=== PATIENT | male | born 1935 | race Caucasian/White ===

== ENCOUNTER 2017-01-30 11:31 | Emergency (ER) | payer MEDICARE, OTHER ==
[~2017-01-30] VITALS: Ht 177.8 cm; Wt 86.2 kg
[~2017-01-30 11:31] MED LIST: CEFD1CAP8 PO; DOCU100C PO; ECOT81TA5 PO; GABA600T PO; GLYB5TA PO; LISI25TA PO; MAGN400T5 PO; METF1000 PO; MULTCAP PO; RANI15TA PO; SIMV40TA2 PO; TERB1CRE8 TOP; VITA1CAP2 PO
[2017-01-30 11:33] VITALS: BP 136/80
== END 2017-01-30 12:56 | disposition home or self-care (01) ==
LOC: M ED 12:37
DX: T83.091A Other mechanical complication of indwelling urethral catheter, initial encounter (principal)

== ENCOUNTER 2017-02-19 21:35 | Emergency (ER) | payer MEDICARE, OTHER ==
[~2017-02-19] VITALS: Ht 180.3 cm; Wt 83.9 kg
[2017-02-19 21:36] VITALS: BP 121/75
== END 2017-02-19 22:44 | disposition home or self-care (01) ==
LOC: M ED 22:44
DX: T83.028A Displacement of other urinary catheter, initial encounter (principal)

== ENCOUNTER 2017-10-25 13:23 | Emergency (ER) | payer MEDICARE, OTHER ==
[~2017-10-25] VITALS: Ht 180.3 cm; Wt 77.3 kg
[~2017-10-25 13:23] MED LIST changes: -DOCU100C PO; +DOCU100C16 PO; -METF1000 PO; +METF10004 PO; +TERB1CRE12 TOP; -TERB1CRE8 TOP
[2017-10-25] MEDS ORDERED: VITA100067 PO (13:41)
[2017-10-25] MEDS ORDERED: GLYB25TA PO (13:41)
[2017-10-25 17:24] LABS: BASO # 0.1 10^3/uL (0.0-0.2); EOS # 0.6 10^3/uL (0.0-0.50); EOS % 8.5 % (0.0-3.0); IMMATURE GRANULOCYTE % 0.4 % (0-0); LYMPH # 1.6 10^3/uL (1.5-4.5); LYMPH % 23.5 % (24.0-44.0); MEAN CORPUSCULAR HEMOGLOBIN 30.3 pg (27.0-33.0); MEAN CORPUSCULAR HGB CONC 33.1 g/dl (32.0-36.5); MEAN CORPUSCULAR VOLUME 91.5 fl (80.0-96.0); MONO # 0.6 10^3/uL (0.0-0.8); MONO % 8.6 % (0.0-5.0); PLATELET COUNT, AUTOMATED 235 10^3/uL (150-450); RED CELL DISTRIBUTION WIDTH 13.3 % (11.5-14.5); WHITE BLOOD COUNT 6.9 10^3/uL (4.0-10.0)
[2017-10-25] MEDS ORDERED: CLINDAMYCIN 600 MG in APPROPRIATE DILUENT 1 EA IV ONE (17:45)
[2017-10-25 17:51] LABS: CALCIUM LEVEL 9.4 MG/DL (8.8-10.2); CREATININE FOR GFR 1.39 MG/DL (0.70-1.30); GLOMERULAR FILTRATION RATE 52.1 (>35); POTASSIUM SERUM 3.8 MEQ/L (3.5-5.1)
--- NOTE | 2017-10-25 17:51 | REP ---
Left ring finger series: Four views. History: Left fourth finger infection, question osteomyelitis. No comparison study. Findings: There is moderate soft tissue swelling about the middle and distal phalanges of the ring finger, particularly dorsally. No soft tissue gas or opaque foreign body is seen. No periosteal reaction or bony erosive changes seen. 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 Impression: No bony destructive lesion or erosive change. Soft tissue swelling. No soft tissue gas or opaque foreign body seen. Signed by Franck Cutler MD 10/25/2017 07:53 P
[2017-10-25 17:54] LABS: ERYTHROCYTE SEDIMENTATION RATE 23 mm/hr (0-20)
[2017-10-25] MEDS ORDERED: CLEO300C2 PO (18:26)
[2017-10-25 18:44] VITALS: BP 135/74
== END 2017-10-25 18:45 | disposition home or self-care (01) ==
LOC: EEVIPCON 13:23 → M ED 13:23
DX: L03.012 Cellulitis of left finger (principal); E11.9 Type 2 diabetes mellitus without complications; Z79.899 Other long term (current) drug therapy; Z79.82 Long term (current) use of aspirin; Z79.84 Long term (current) use of oral hypoglycemic drugs

== ENCOUNTER 2018-06-02 15:02 | Emergency (ER) | payer MEDICARE, OTHER | END 2018-06-02 18:00 | disposition home or self-care (01) | LOC: M ED 15:02 | DX: T83.098A Other mechanical complication of other urinary catheter, initial encounter (principal); Y92.9 Unspecified place or not applicable; Y93.9 Activity, unspecified; I10 Essential (primary) hypertension; G95.9 Disease of spinal cord, unspecified; Z87.891 Personal history of nicotine dependence; Z79.82 Long term (current) use of aspirin; Z79.899 Other long term (current) drug therapy | CPT/HCPCS: 51700 ==

== ENCOUNTER 2018-08-30 13:22 | Emergency (ER) | payer MEDICARE, OTHER ==
[2018-08-30 14:29] LABS: BASO # 0.1 10^3/uL (0.0-0.2); BASO % 0.5 % (0.0-1.0); EOS # 0.1 10^3/uL (0.0-0.50); EOS % 0.7 % (0.0-3.0); HEMATOCRIT 39.4 % (42.0-52.0); HEMOGLOBIN 13.1 g/dl (13.5-17.5); IMMATURE GRANULOCYTE % 0.7 % (0-3.0); MEAN CORPUSCULAR HEMOGLOBIN 29.8 pg (27.0-33.0); MEAN CORPUSCULAR HGB CONC 33.2 g/dl (32.0-36.5); MEAN CORPUSCULAR VOLUME 89.5 fl (80.0-96.0); MONO # 0.8 10^3/uL (0.0-0.8); MONO % 8.4 % (0.0-5.0); NEUTROPHILS # 7.4 10^3/uL (1.8-7.7); NEUTROPHILS % 78.7 % (36.0-66.0); PLATELET COUNT, AUTOMATED 332 10^3/uL (150-450); RED CELL DISTRIBUTION WIDTH 13.1 % (11.5-14.5); WHITE BLOOD COUNT 9.4 10^3/uL (4.0-10.0)
[2018-08-30 14:37] LABS: KETONE, URINE AUTO RFX TRACE mg/dL (NEGATIVE); MUCUS, URINE RFX LARGE (NEGATIVE); NITRITE, URINE AUTO RFX NEGATIVE (NEGATIVE); RBC, URINE AUTO RFX 87 /HPF (0-3); SPECIFIC GRAVITY UR AUTO RFX 1.023 (1.002-1.035); SQUAM EPITHELIAL CELL UR AURFX 0 /HPF (0-6)
[2018-08-30 14:43] LABS: LEUKOCYTE ESTERASE UR AUTO RFX 2+ (NEGATIVE); WBC, URINE AUTO RFX TNTC /HPF (0-3)
[2018-08-30 15:04] LABS: BLOOD UREA NITROGEN 18 MG/DL (7-18); CREATININE FOR GFR 1.28 MG/DL (0.70-1.30); GLOMERULAR FILTRATION RATE 57.3 (>35); GLUCOSE, FASTING 112 MG/DL (70-100); SODIUM LEVEL 139 MEQ/L (136-145)
[2018-08-30 15:05] LABS: ANION GAP 11 MEQ/L (8-16); CALCIUM LEVEL 8.9 MG/DL (8.8-10.2); CARBON DIOXIDE LEVEL 24 MEQ/L (21-32); CHLORIDE LEVEL 104 MEQ/L (98-107); POTASSIUM SERUM 4.5 MEQ/L (3.5-5.1)
[2018-08-30] MEDS: NS 1,000 ML IV (15:38)
[2018-08-30] MEDS: cefTRIAXone SOD 1 GM in D5W MINI-BAG PLUS 50 ML IV (15:38)
== END 2018-08-30 16:55 | disposition home or self-care (01) ==
LOC: M ED 13:22
DX: N30.00 Acute cystitis without hematuria (principal); E11.9 Type 2 diabetes mellitus without complications; N39.498 Other specified urinary incontinence; I10 Essential (primary) hypertension; E78.00 Pure hypercholesterolemia, unspecified; Z79.899 Other long term (current) drug therapy; Z79.4 Long term (current) use of insulin; Z79.82 Long term (current) use of aspirin; Z93.6 Other artificial openings of urinary tract status; Z87.828 Personal history of other (healed) physical injury and trauma
CPT/HCPCS: J0696

== ENCOUNTER 2018-11-17 14:20 | Emergency (ER) | payer MEDICARE, OTHER ==
[~2018-11-17] VITALS: Ht 177.8 cm; Wt 88.6 kg
[~2018-11-17 14:20] MED LIST changes: +CEPH500C PO; +CLEO300C2 PO; -GABA600T PO; +GABA600T4 PO; +GLYB25TA PO; +HYDR1OI; +LANTINJ4 SC; +NYST10OI; +VITA100067 PO
[2018-11-17] MEDS ORDERED: LISI-542 (14:27)
[2018-11-17] MEDS ORDERED: ACETAMINOPHEN TAB 650MG DOSE (2X325MG) PO ONE (15:15)
--- NOTE | 2018-11-17 15:46 | REP ---
Pain after trauma. COMPARISON EXAM: None. The bones are demineralized. Degenerative changes are seen throughout the wrist. There is no evidence of an acute fracture, dislocation, or subluxation. IMPRESSION: Chronic changes. Electronically Signed by Biju Newby DO 11/17/2018 03:57 P
--- NOTE | 2018-11-17 15:48 | REP ---
RIGHT HAND, TWO VIEWS: HISTORY: Pain. There is no acute fracture or dislocation. There is narrowing of the lateral carpal and first carpometacarpal joint spaces. An osteophyte is present at the first metacarpophalangeal joint space and at the interphalangeal joint space of the first digit. IMPRESSION: There is no acute fracture or dislocation. Electronically Signed by Eliecer Gonzáles MD 11/17/2018 03:50 P
[2018-11-17 16:14] VITALS: BP 108/56
== END 2018-11-17 16:31 | disposition home or self-care (01) ==
LOC: M ED 14:20
DX: M18.11 Unilateral primary osteoarthritis of first carpometacarpal joint, right hand (principal); M25.741 Osteophyte, right hand; E11.9 Type 2 diabetes mellitus without complications; I10 Essential (primary) hypertension; E78.5 Hyperlipidemia, unspecified; Z79.82 Long term (current) use of aspirin; Z79.4 Long term (current) use of insulin; Z79.899 Other long term (current) drug therapy

== ENCOUNTER 2019-03-02 16:59 | Emergency (ER) | payer MEDICARE, OTHER ==
[~2019-03-02] VITALS: Ht 177.8 cm; Wt 80.9 kg
[~2019-03-02 16:59] MED LIST changes: +GLYB-147 PO; -GLYB5TA PO; +LISI-542; +LISI2.5T49 PO; -LISI25TA PO; +VITA-183 PO; -VITA1CAP2 PO
[2019-03-02 17:07] VITALS: BP 135/82
== END 2019-03-02 18:17 | disposition home or self-care (01) ==
LOC: M ED 16:59
DX: T83.198A Other mechanical complication of other urinary devices and implants, initial encounter (principal); X58.XXXA Exposure to other specified factors, initial encounter; Y92.89 Other specified places as the place of occurrence of the external cause; E11.9 Type 2 diabetes mellitus without complications; I10 Essential (primary) hypertension; G89.29 Other chronic pain; Z79.899 Other long term (current) drug therapy; Z79.82 Long term (current) use of aspirin; Z79.4 Long term (current) use of insulin

== ENCOUNTER 2019-03-05 09:07 | Emergency (ER) | payer MEDICARE, OTHER ==
[~2019-03-05] VITALS: Ht 177.8 cm; Wt 178.0 kg
[2019-03-05] MEDS ORDERED: FUROSEMIDE 20 MG TAB PO ONE (13:00)
[2019-03-05 14:40] VITALS: BP 132/61
--- NOTE | 2019-03-06 10:08 | ER ---
DATE OF CONSULTATION: 03/05/2019 Eliecer is an 83-year-old gentleman who was seen in the emergency room this morning after his suprapubic catheter had fallen out. The nurses and the physician investigative assistant (PA) could not get the catheter back, for which reason the urological consultation was called. I saw the patient. He was in moderate distress. He has a history of spinal cord surgeries and neurogenic bladder for which he has been managed with suprapubic catheter for the last one year. His catheter was changed on the 02 March in the clinic. It came out accidentally and then it was replaced by the emergency room, but today when the emergency room doctors were trying to put it back, they could not get it back inside. Apparently, the suprapubic (SP) tract has been closing down. I made an attempt to put the SP tube back, but it failed because the tract was too tight so we did a bedside procedure. A 0-38 F guidewire was passed through the small opening in the suprapubic region and the guidewire Was manipulated in the bladder and curled into the bladder. After the adequate length of guidewire was curled in the bladder The SP tract was dilated to 24 Turkmen over the guidewire using plastic ureteral dilators and an 18 Turkmen catheter was slipped in over the guidewire with no difficulty. Around 800 mL of the blood tinged urine was drained. The patient was asked to stay in the emergency room for the next couple of hours and 40 of Lasix was given and he would drink a lot of water. This patient will followup with us in the clinic in about 4 weeks for change of his suprapubic catheter (SPC). SANDOVAL
== END 2019-03-05 15:25 | disposition home or self-care (01) ==
LOC: M ED 09:07
DX: T83.198A Other mechanical complication of other urinary devices and implants, initial encounter (principal); Y92.9 Unspecified place or not applicable; Y93.9 Activity, unspecified; N31.9 Neuromuscular dysfunction of bladder, unspecified; Z79.82 Long term (current) use of aspirin; Z79.4 Long term (current) use of insulin; Z79.899 Other long term (current) drug therapy

== ENCOUNTER 2019-10-27 11:23 | Observation (INO) | payer MEDICARE, OTHER ==
[~2019-10-27] VITALS: Ht 180.3 cm; Wt 85.6 kg
[~2019-10-27 11:23] MED LIST changes: -NYST10OI; +NYST10OI TOP; -SIMV40TA2 PO; +SIMV40TA20 PO
[2019-10-27] MEDS ORDERED: METF500T13 PO (11:45)
[2019-10-27] MEDS ORDERED: NS 2,250 ML in IV 1 EA IV ONE (11:45)
[2019-10-27] MEDS ORDERED: LISI-1046 PO (11:45)
[2019-10-27] MEDS ORDERED: FAMO20TA PO (11:45)
[2019-10-27 11:59] LABS: BASO % 0.2 % (0.0-1.0); EOS % 0.1 % (0.0-3.0); HEMATOCRIT 41.6 % (42.0-52.0); HEMOGLOBIN 13.9 g/dl (13.5-17.5); LYMPH % 1.8 % (24.0-44.0); MEAN CORPUSCULAR HEMOGLOBIN 30.2 pg (27.0-33.0); MEAN CORPUSCULAR HGB CONC 33.4 g/dl (32.0-36.5); MEAN CORPUSCULAR VOLUME 90.2 fl (80.0-96.0); MONO # 0.6 10^3/uL (0.0-0.8); NEUTROPHILS # 11.6 10^3/uL (1.5-8.5); NEUTROPHILS % 92.4 % (36.0-66.0); PLATELET COUNT, AUTOMATED 150 10^3/uL (150-450); RED BLOOD COUNT 4.61 10^6/uL (4.30-6.10); WHITE BLOOD COUNT 12.5 10^3/uL (4.0-10.0)
[2019-10-27] MEDS ORDERED: ACETAMINOPHEN 325 MG TAB PO ONE (12:00)
[2019-10-27] MEDS ORDERED: cefTRIAXone SOD 1 GM in D5W MINI-BAG PLUS 50 ML IV ONE (12:00)
[2019-10-27 12:17] LABS: LYMPH # 0.2 10^3/uL (1.5-5.0)
[2019-10-27 12:32] LABS: APPEARANCE, URINE HAZY (CLEAR); BACTERIA, URINE AUTO 1+ (NEGATIVE); BILIRUBIN, URINE AUTO NEGATIVE (NEGATIVE); BLOOD, URINE BLOOD 3+ (NEGATIVE); COLOR, URINE YELLOW (YELLOW); GLUCOSE, URINE (UA) AUTO NEGATIVE (NEGATIVE); KETONE, URINE AUTO TRACE mg/dL (NEGATIVE); LEUKOCYTE ESTERASE, URINE AUTO 1+ (NEGATIVE); MUCUS, URINE SMALL (NEGATIVE); NITRITE, URINE AUTO NEGATIVE (NEGATIVE); PROTEIN, URINE AUTO 2+ mg/dL (NEGATIVE); RBC, URINE AUTO 73 /HPF (0-3); SPECIFIC GRAVITY URINE AUTO 1.013 (1.002-1.035); SQUAMOUS EPITHELIAL CELL UR AU 0 /HPF (0-6); UROBILINOGEN, URINE AUTO 0.2 mg/dL (0.0-2.0); WBC, URINE AUTO 16 /HPF (0-3)
[2019-10-27 12:34] LABS: ALBUMIN 3.6 GM/DL (3.2-5.2); BILIRUBIN,DIRECT 0.4 MG/DL (0.0-0.2); BILIRUBIN,TOTAL 1.5 MG/DL (0.2-1.0); CALCIUM LEVEL 9.2 MG/DL (8.8-10.2); CREATININE FOR GFR 1.43 MG/DL (0.70-1.30); GLOMERULAR FILTRATION RATE 50.2 (>35); POTASSIUM SERUM 4.2 MEQ/L (3.5-5.1); TOTAL PROTEIN 6.9 GM/DL (6.4-8.2)
--- NOTE | 2019-10-27 13:08 | REP ---
Portable chest x-ray: Single view. History: Fever. Findings: The lungs are symmetrically aerated and clear. Pleural angles are sharp. Heart size is normal. There is a mild dextroconvex curve in the thoracic spine. The aorta is tortuous. Impression: No active disease. Electronically Signed by Franck Cutler MD 10/27/2019 01:00 P
[2019-10-27] MEDS ORDERED: LISI-542 PO (13:32)
[2019-10-27] MEDS ORDERED: ZOCO80TA PO (13:32)
[2019-10-27] MEDS ORDERED: GLUC4GMTAB PO (13:32)
[2019-10-27] MEDS ORDERED: MICO2CRE42 TOP (13:34)
[2019-10-27] MEDS ORDERED: VANCOMYCIN HCL 1,000 MG, VIAL MATE ADAPTER 1 EACH in D5W 250 ML IV ONE (15:30)
[2019-10-27] MEDS ORDERED: ACETAMINOPHEN TAB 650MG DOSE (2X325MG) PO PRN (17:30)
[2019-10-27] MEDS ORDERED: SODIUM CHLORIDE 0.9% 1000ML IV SCH (17:30)
[2019-10-27] MEDS ORDERED: NYSTATIN OINTMENT 15 GM TOP PRN (17:45)
[2019-10-27] MEDS ORDERED: GLUCAGON FOR INJ 1 MG VIAL (J1610) SC PRN (17:45)
[2019-10-27] MEDS ORDERED: GLUCOSE 4 GM CHEW TABLET PO PRN (17:45)
[2019-10-27] MEDS ORDERED: DEXTROSE 50% 50 ML SYRINGE IV PRN (17:45)
[2019-10-27] MEDS ORDERED: MICONAZOLE TOPICAL 2% CREAM 15GM TOP PRN (17:45)
--- NOTE | 2019-10-27 18:02 | PHACANCOPD ---
PHARMACY VANCOMYCIN DOSING Pt Demographics Demographics Patient Age:84 , Weight:75.000 , Gender: male Adjusted Body Weight Date: 10/27/19, Adjusted Body Weight: Kg Events Past 24 Hours Events Past 24 Hours: NO: Dialysis, Diuretic Therapy, Change in CrCl, Fever, Elevation in WBC, Pending Diagnostics, Pending Procedures, Other Vancomycin Vancomycin indication: UTI WITH HISTORY OF MRSA UTI Vancomycin Target Ranges: 15-20 mcg/ml Vancomycin Load Y/N: Yes Load Dose Date Time Vancomycin Load Dose: 1.5g Date: 10/27/19 Time:18:00 Vancomycin Dose Date: 10/27/19. Current Vancomycin Dose: [1g iv q24h] Intermittent Dosing?: No Labs Labs Item Value Date Time Creatinine 1.43 MG/DL H 10/27/19 1141 Item Value Date Time White Blood Count 12.5 10^3/uL H 10/27/19 1141 Creatinine 1.43 MG/DL H 10/27/19 1141 Micro Microbiology 10/27/19 Urine Culture, Received Pending 10/27/19 Blood Culture, Received Pending 10/27/19 Blood Culture, Received Pending Creatinine Clearance Date:10/27/19. Creatinine Clearance: [41mil/min]. Pending Labs vanco trough 10/29/19 @16 Assessment and Plan Maintaining Current Dose?: Yes Reason for dose change: No Dose Change Pharmacist Note Pharmacist Note Date: 10/27/19. Pharmacist note: PT is an 84 year old male being treated for uti with history of MRSA UTI goal trough 15-20mcg/ml. He has not been treated with vancomycin here at [facility] in the past. To achieve goal a 1.5g loading dose was started 10/27/19 @17:00. Maintenance therapy will consist of 1g IV every 24 hours. A trough is scheduled for 10/29/19 @16:00 prior to the third dose. We will continue to monitor and adjust the dose as needed. ROSANNA [facility] Oct 27, 2019 18:02
[2019-10-27] MEDS: HumaLOG INSULIN (NovoLOG) PER UNIT SC SCH (18:16)
--- NOTE | 2019-10-27 18:18 | HPEPDOC ---
General Date of Admission 10/27/2019 Date of Service: Oct 27, 2019 Attending Physician: SHELLEY PEÑA MD Chief Complaint The patient is a 84-year-old male admitted with a reason for visit of Urosepsis/ Unable To Care For Himself. Source: Patient, Family Exam Limitations: No limitations Timing/Duration: 24 hours Associated Symptoms: Other (abdominal pain) History of Present Illness 84 yo man with a history of spinal cord injury with a chronic suprapubic catheter c/b recurrent UTIs of which the last in our EMR was a MRSA UTI, diabetes, diverticulosis, hypertension, and diabetic neuropathy who presented from home with acute hematuria and transient abdominal pain in the setting of a recent suprapubic catheter change yesterday that he reportedly may have pulled out and had transient blockage with acute abdominal pain that resolved after his home nurse arrived today and exchanged out the catheter with immediate flow of blood urine with clots that later cleared and immediate relief of the abdominal pain. He however developed a fever and chills and his nurse after changing his catheter decided that he should be brought in for evaluation of the fever, chills, and recent abdominal pain and lethargy. Int he ED, he arrived with vitals 123/66, RR 18, breathing comfortably on room air with 100% saturation, HR 96 and RR 18 with his urinary bag draining already slightly cloudy yellow urine without clots. His BP subsequently dropped to 90/55 and he had a low grade temp to 100F and tachycardia and he was given 2L NS and started on empiric vanc and ceftriaxone. His work up was notable for a +UA with 1+ louisa, 1+ leuk, 16 WBC, 73 RBCs, 3+ blood and 2+ protein. WBC was 12.5, H/H 13.9/41.6, platelets 150, Cr 1.43, lactate 1.9, total bili 1.4, and had a CT A/P and RUQ US that were pending. He also had an unrevealing CXR. He is now being admitted to medicine for urosepsis. Home Medications Scheduled Aspirin (Ecotrin) 81 Mg Tab, 81 MG PO DAILY, (Reported) Famotidine (Famotidine) 20 Mg Tablet, 20 MG PO DAILY, (Reported) Gabapentin (Gabapentin) 600 Mg Tab, 600 MG PO BID, (Reported) Insulin Glargine,Hum.rec.anlog (Lantus Solostar) 100 Unit/Ml Inj, 16 UNITS SC QHS, (Reported) Lisinopril (Lisinopril) 5 Mg Tablet, 2.5 MG PO DAILY, (Reported) Metformin HCl (Metformin HCl) 500 Mg Tablet, 500 MG PO BID, (Reported) Simvastatin (Zocor) 80 Mg Tablet, 40 MG PO QHS, (Reported) Scheduled PRN Dextrose (Glucose) 4 Gm Tab.chew, 4 GM PO ASDIRECTED PRN for LOW BLOOD SUGAR, (Reported) Miconazole Nitrate (Miconazole Nitrate) 30 Gm Cream..g., 1 APLCT TOP BID PRN for FUNGAL INFECTION, (Reported) APPLY TO SUPRAPUBIC CATHETER AREA Nystatin (Nystatin) 100,000 Unit/Gm Oin, 1 APLCT TOP BID PRN for FUNGAL INFECTION, (Reported) APPLY TO SUPRAPUBIC CATHETER AREA Allergies Coded Allergies: No Known Allergies (Unverified , 10/21/14) Past Medical History Medical History DM HTN Diverticulosis 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 A-FIB/CHADSVASC A-FIB History Current/History of A-Fib/PAF?: No Current PO Anticoag Therapy: No Age/Risk Factor Scoring CHADSVASC: CHADSVASC Response (Comments) Value Age Risk Factor Age >/= 75 years old 2 Gender Risk Factor Male 0 Hx of CHF No 0 Hx of HTN Yes 1 Hx of Stroke/TIA/or VTE No 0 Hx of Diabetes Yes 1 Hx of Vascular Disease No 0 Total 4 Treatment Treatment ordered: NONE Reason Anticoagulant not given: Not indicated/[id number] Review of Systems Constitutional: Reports: Chills, Fever; Denies: Malaise, Night Sweats, Weakness, Fatigue, Weight Loss Eyes: Denies: Pain, Vision change ENT: Denies: Head Aches, Ear Pain, Dysphagia Skin: Denies: Rash, Lesions, Breakdown Pulmonary: Denies: Dyspnea, Cough Cardiovascular: Denies: Chest Pain, Palpitations, Orthopnea, Paroxysmal Noc. Dyspnea, Lt Headedness Gastrointestinal: Reports: Abdominal Pain; Denies: Nausea, Vomiting, Diarrhea, Constipation, Melena, Hematochezia Genitourinary: Reports: Hematuria, Retention; Denies: Dysuria, Frequency, Incontinence Hematologic: Denies: Bruising, Bleeding Excessively Endocrine: Denies: Polydipsia, Polyphagia, Polyuria, Heat Intolerance, Cold Intolerance, Other Endocrine Sx Musculoskeletal: Reports: Back Pain (mild, chronic, no new worsening); Denies: Neck Pain, Shoulder Pain, Arm Pain, Hand Pain, Leg Pain, Foot Pain, Joint Pain, Muscle Pain, Spasms, Other Symptoms Neurological: Reports: Weakness, Numbness; Denies: Change in speech, Confusion, Seizures Psych: Reports: Mood Normal; Denies: Depression, Memory Issues Physical Examination General Exam: Positive: Alert, No Acute Distress Eye Exam: Positive: PERRLA, Conjunctiva & lids normal, EOMI; Negative: Sclera icteric ENT Exam: Positive: Atraumatic, Mucous membr. moist/pink, Pharynx Normal Neck Exam: Positive: Supple; Negative: JVD, thyromegaly Chest Exam: Positive: Clear to auscultation, Normal air movement Heart Exam: Positive: Rate Normal, Regular Rhythm, Normal S1, Normal S2; Negative: Murmurs, Rubs Telemetry: Positive: No significant arrhythmia Abdomen Exam: Positive: Normal bowel sounds, Soft; Negative: Tenderness, Hepatospenomegaly Extremity Exam: Positive: Normal pulses; Negative: Clubbing, Cyanosis, Edema Skin Exam: Positive: Nl turgor and temperature; Negative: Breakdown, Lesion Neuro Exam: Positive: Normal Speech, Cranial Nerves 3-12 NL Psych Exam: Positive: Mental status NL, Mood NL, Oriented x 3 Vital Signs Vital Signs Date Time Temp Pulse Resp B/P (MAP) Pulse Ox O2 Delivery O2 Flow Rate FiO2 10/27/19 16:30 92 111/72 (85) 97 10/27/19 13:30 98.9 10/27/19 12:45 Room Air 10/27/19 11:30 18 Laboratory Data Labs 24H Laboratory Tests 2 10/27/19 11:41: Immature Granulocyte % (Auto) 0.5, Neutrophils (%) (Auto) 92.4H, Lymphocytes (%) (Auto) 1.8L, Monocytes (%) (Auto) 5.0, Eosinophils (%) (Auto) 0.1, Basophils (%) (Auto) 0.2, Neutrophils # (Auto) 11.6H, Lymphocytes # (Auto) 0.2L, Monocytes # (Auto) 0.6, Eosinophils # (Auto) 0.0, Basophils # (Auto) 0.0, Nucleated Red Blood Cells % (auto) 0.0, Anion Gap 11, Glomerular Filtration Rate 50.2, Lactic Acid Level 1.9, Calcium Level 9.2, Total Bilirubin 1.5H, Direct Bilirubin 0.4H, Aspartate Amino Transf (AST/SGOT) 11, Alanine Aminotransferase (ALT/SGPT) 15, Alkaline Phosphatase 58, Total Protein 6.9, Albumin 3.6, Albumin/Globulin Ratio 1.09 10/27/19 12:19: Urine Color YELLOW, Urine Appearance HAZY, Urine pH 5.0, Urine Specific [place] 1.013, Urine Protein 2+H, Urine Glucose (Auto)(UA) NEGATIVE, Urine Ketones (Auto) TRACEH, Urine Blood 3+H, Urine Nitrite NEGATIVE, Urine Bilirubin NEGATIVE, Urine Urobilinogen 0.2, Urine Leukocyte Esterase (Auto) 1+H, Urine WBC (Auto) 16H, Urine RBC (Auto) 73H, Urine Hyaline Casts (Auto) 1, Urine Bacteria (Auto) 1+H, Urine Squamous Epithelial Cells 0, Urine Mucus (Auto) SMALL, Urine Sperm (Auto) CBC/BMP Laboratory Tests 10/27/19 11:41 Microbiology Microbiology 10/27/19 Urine Culture, Received Pending 10/27/19 Blood Culture, Received Pending 10/27/19 Blood Culture, Received Pending Assessment/Plan 84 yo man with a history of spinal cord injury with a chronic suprapubic catheter c/b recurrent UTIs, diabetes, diverticulosis, hypertension, and diabetic neuropathy who presented from home with acute hematuria and transient abdominal pain after manipulation of his suprapubic catheter with transient occlusion that has now been resolved with urosepsis. Plan Urosepsis: Hematuria with transient lola hematuria after catheter exchange and manipulation, then development of fever, lethargy, tachycardia and found to have leukocytosis and +UA. -Continue vanc/ceftriaxone given the prior micro history -urine culture -blood cultures -f/u CT A/P Transient abdominal pain: Likely 2/2 catheter obstruction that resolved with replacement of catheter. Unlikely to be biliary in origin but will follow up the gall bladder US -follow up CT A/P and gall bladder US -Resolved at this time, will monitor DM: -Levemir per home dosing -SSI -FABG AC/HS -hypoglycemia protocol -consistent carb diet, 2g salt Hypertension: -hold home lisinopril while patient is septoid, will restart once infection is under control and BP has normalized. -monitor for now, s/p 2L fluids, getting a 3rd liter Hyperlipidemia: -continue home simvastatin Chronic suprapubic catheter: -Was just changed today prior to coming in, had transient hematuria that has now resolved and cleared -Will monitor for now -continue the nystatin and miconazole around the suprapubic cath site GUSTAVO: Unclear baseline as he has been anywhere between Cr 1 - 2. -Got fluids, possible dehydration, will check AM BMP -f/u CT A/P for possible post obstructive uropathy Diet: Consistent carb, 2g sodium DVT ppx: heparin SC Dispo: pending microbiology to tailor antibiotics, will otherwise for now continue vanc/ceftriaxone Plan / VTE VTE Prophylaxis Ordered?: Yes SHELLEY PEÑA MD Oct 27, 2019 18:18
[2019-10-27] MEDS ORDERED: VANCOMYCIN HCL 500 MG in D5W MINI-BAG PLUS 100 ML IV ONE (19:00)
--- NOTE | 2019-10-27 19:19 | REP ---
CT abdomen pelvis without IV or oral contrast: History: Hematuria. Fever. No comparison CT. CT findings: Preliminary digital yard conductor radiograph demonstrates a markedly distended stool filled rectum and rectosigmoid colon extending up well above the umbilicus in the upper abdomen. No small bowel dilation is seen. There is formed stool in the remainder the colon. On axial CT images, the lung bases are essentially clear. There is a sliding type hiatal hernia small in size. No adrenal lesion is seen. No abnormalities noted in the pancreas. There is a small focal calcification along the superior margin wall of the gallbladder. This may be wall calcification or a tiny calculus in the gallbladder. No focal hepatic or splenic lesion is seen. There is a tiny peripheral hyperdense cyst in the left kidney and a low density cyst is seen in the right kidney measuring 2.1 cm in greatest diameter. No hydronephrosis or intrarenal calculus is observed on either side. Heavy vascular calcification is observed in the renal artery on the right. A suprapubic cystostomy catheter is noted in place in the bladder. The bladder is largely empty. Axial CT images confirm the presence of a markedly distended stool filled rectum producing a palpable abdominal mass affect. This fills the pelvis and distorts and displaces the urinary bladder. There is mild rectal wall thickening diffusely raising question of stercoral colitis. There is no evidence of free intraperitoneal air. No abnormal fluid collection is seen. No soft tissue mass or adenopathy is observed. There is evidence of a right inguinal hernia transmitting a small amount of abdominal fat into the inguinal canal. A Impression: Markedly distended stool filled rectum and rectosigmoid producing a pelvo-abdominal mass, obstipation/constipation. Mural thickening in the rectum wall raising question of stercoral colitis. Suprapubic cystostomy catheter in place. Small right inguinal hernia transmitting a small quantity of abdominal fat. One focal calcification in the gallbladder or along its wall. Sliding hiatal hernia. Renal cysts. Electronically Signed by Franck Cutler MD 10/27/2019 08:05 P
[2019-10-27] MEDS ORDERED: LEVEMIR (INSULIN DETEMIR) 1 UNITS/0.01ML SC SCH (21:00)
[2019-10-27] MEDS ORDERED: HumaLOG INSULIN (NovoLOG) PER UNIT SC SCH (21:00)
[2019-10-27] MEDS ORDERED: SIMVASTATIN 40 MG TAB PO SCH (21:00)
[2019-10-27 21:14] VITALS: BP 94/58
[2019-10-27] MEDS: GABAPENTIN 300 MG CAP PO SCH (22:01)
[2019-10-27] MEDS: HEPARIN SOD (PORCINE) 5000 UNITS/ML VIAL SC SCH (22:01)
[2019-10-28] VITALS: BP 93/56
[2019-10-28 04:00] VITALS: BP 116/73
[2019-10-28] MEDS: HEPARIN SOD (PORCINE) 5000 UNITS/ML VIAL SC SCH ×2 (05:29→14:00)
--- NOTE | 2019-10-28 07:07 | REP ---
RIGHT UPPER QUADRANT ULTRASOUND: Real-time sonographic evaluation of the right upper quadrant performed. Gallbladder is contracted and contains multiple stones measuring up to 2.9 cm. There is no gallbladder wall thickening or pericholecystic fluid. There is no intrahepatic or extrahepatic biliary dilatation. Common bile duct measures 7 mm at upper limits of normal. Echotexture of the liver is mildly hyperechoic suggesting some degree of fatty infiltration. No gross liver mass is seen. The pancreas cannot be seen due to overlying bowel gas. Right kidney demonstrates no hydronephrosis with normal size 9.5 cm in length. There is a cyst in the lower pole 2.2 x 1.9 x 2.3 cm. IMPRESSION: Limited exam due to patient body habitus and bowel gas. Multiple gallstones in a contracted gallbladder without gallbladder wall thickening, pericholecystic fluid or biliary dilatation. Common bile duct upper limits of normal at 7 mm. Right renal cyst. Electronically Signed by Mukesh Draper MD 10/30/2019 04:16 P
[2019-10-28 08:00] VITALS: BP 116/66
[2019-10-28] MEDS ORDERED: BISACODYL 10 MG SUPP PR ONE (08:00)
[2019-10-28] MEDS: HumaLOG INSULIN (NovoLOG) PER UNIT SC SCH ×2 (08:17→11:43)
[2019-10-28] MEDS: GABAPENTIN 300 MG CAP PO SCH (08:17)
[2019-10-28] MEDS ORDERED: ASPIRIN 81 MG ENTERIC TAB PO SCH (09:00)
[2019-10-28] MEDS ORDERED: LISINOPRIL *2.5 MG* TAB PO SCH (09:00)
[2019-10-28] MEDS ORDERED: FAMOTIDINE 20 MG TAB PO SCH (09:00)
[2019-10-28 12:00] VITALS: BP 116/66
--- NOTE | 2019-10-28 12:03 | IPNPDOC ---
Text Note Date of Service The patient was seen on 10/28/19. NOTE Subjective: -Feels ok this morning, no complaints -No fever, chills, abdominal pain, no new worsening back pain Objective: General Exam: Alert, No Acute Distress Eye Exam: PERRLA, Conjunctiva & lids normal, EOMI; anicteric ENT Exam: Atraumatic, Mucous membr. moist/pink, Pharynx Normal Neck Exam: Supple, no JVD or thyromegaly Chest Exam: Clear to auscultation, Normal air movement Heart Exam: Rate Normal, Regular Rhythm, Normal S1, Normal S2 Abdomen Exam: Normal bowel sounds, Soft, NTND, suprapubic catheter site looks clean without erythema Extremity Exam: WWP, no LE edema Skin Exam: Nl turgor and temperature, no breakdown or lesions Neuro Exam: Normal Speech, Cranial Nerves 3-12 NL Psych Exam: Mental status NL, Mood NL, Oriented x 3 Labs: AM labs are pending. Micro is pending as well. Imaging: CT A/P: Markedly distended stool filled rectum and rectosigmoid producing a pelvo-abdominal mass, obstipation/constipation. Mural thickening in the rectum wall raising question of stercoral colitis. Suprapubic cystostomy catheter in place. Small right inguinal hernia transmitting a small quantity of abdominal fat. One focal calcification in the gallbladder or along its wall. Sliding hiatal hernia. Renal cysts. RUQ US: Limited exam due to patient body habitus and bowel gas. Multiple gallstones in a contracted gallbladder without gallbladder wall thickening, pericholecystic fluid or biliary dilatation. Common bile duct upper limits of normal at 7 mm. Right renal cyst. CXR: No active disease. Assessment 84 yo man with a history of spinal cord injury with a chronic suprapubic catheter c/b recurrent UTIs, diabetes, diverticulosis, hypertension, and d iabetic neuropathy who presented from home with acute hematuria and transient abdominal pain after manipulation of his suprapubic catheter with transient occlusion that has now been resolved with urosepsis. Plan Urosepsis: Hematuria with transient lola hematuria after catheter exchange and manipulation, then development of fever, lethargy, tachycardia and found to have leukocytosis and +UA. -Continue vanc/ceftriaxone today (day 2) -urine culture --> negative --> will empirically treat with bactrim for 7d, so will give script for 5 more days of DS Bactrim BID -blood cultures negative -CT A/P without acute pathology and catheter in place Transient abdominal pain: Likely 2/2 catheter obstruction that resolved with replacement of catheter. Unlikely to be biliary in origin but will follow up the gall bladder US -CT A/P showing constipation, will add bowel regimen -gall bladder US with cholelithiasis with no evidence of inflammation at this time CBD with no stones or dilation -Resolved pain at this time, will monitor -Will add a dulcolax suppository for constipation DM: -Levemir per home dosing -SSI -FABG AC/HS -hypoglycemia protocol -consistent carb diet, 2g salt Hypertension: -hold home lisinopril while patient is septoid, will restart once infection is under control and BP has normalized. -monitor for now, s/p 2L fluids, getting a 3rd liter Hyperlipidemia: -continue home simvastatin Chronic suprapubic catheter: -Was just changed today prior to coming in, had transient hematuria that has now resolved and cleared -Will monitor for now -continue the nystatin and miconazole around the suprapubic cath site GUSTAVO: Unclear baseline as he has been anywhere between Cr 1 - 2. -Got fluids, possible dehydration, will f/u AM BMP -CT A/P without evidence of post obstructive nephropathy Diet: Consistent carb, 2g sodium DVT ppx: heparin SC Dispo: willl discharge home at this time VS,Fishbone, I+O VS, Fishbone, I+O Laboratory Tests 10/27/19 11:41 Vital Signs Date Time Temp Pulse Resp B/P (MAP) Pulse Ox O2 Delivery O2 Flow Rate FiO2 10/28/19 04:00 97.6 82 18 116/73 (87) 96 Room Air I&O- Last 24 Hours up to 6 AM 10/28/19 06:00 Intake Total 2380 ml Output Total 900 ml Balance 1480 ml SHELLEY PEÑA MD Oct 28, 2019 07:39
--- NOTE | 2019-10-28 12:16 | DS.PDOC ---
Discharge Summary General Date of Admission Oct 27, 2019 at 11:24 Date of Discharge 10/28/2019 Attending Physician: SHELLEY EPÑA MD Discharge Summary PROCEDURES PERFORMED DURING STAY: None ADMITTING DIAGNOSES: 1. UTI DISCHARGE DIAGNOSES: 1. UTI with sepsis 2. spinal cord injury with a chronic suprapubic catheter 3. diabetes 4. hypertension 5. diabetic neuropathy COMPLICATIONS/CHIEF COMPLAINT: UTI. HISTORY OF PRESENT ILLNESS: 84 yo man with a history of spinal cord injury with a chronic suprapubic cat heter c/b recurrent UTIs of which the last in our EMR was a MRSA UTI, diabetes, diverticulosis, hypertension, and diabetic neuropathy who presented from home with acute hematuria and transient abdominal pain in the setting of a recent suprapubic catheter change yesterday that he reportedly may have pulled out and had transient blockage with acute abdominal pain that resolved after his home nurse arrived today and exchanged out the catheter with immediate flow of blood urine with clots that later cleared and immediate relief of the abdominal pain. He however developed a fever and chills and his nurse after changing his catheter decided that he should be brought in for evaluation of the fever, chills, and recent abdominal pain and lethargy. HOSPITAL COURSE: In the ED, he arrived with vitals 123/66, RR 18, breathing comfortably on room air with 100% saturation, HR 96 and RR 18 with his urinary bag draining already slightly cloudy yellow urine without clots. His BP subsequently dropped to 90/55 and he had a low grade temp to 100F and tachycardia and he was given 2L NS and started on empiric vanc and ceftriaxone. His work up was notable for a +UA with 1+ louisa, 1+ leuk, 16 WBC, 73 RBCs, 3+ blood and 2+ protein. WBC was 12.5, H/H 13.9/41.6, platelets 150, Cr 1.43, lactate 1.9, total bili 1.4, and had a CT A/P and RUQ US that showed no hydronephrosis or acute pathology and gallstones without inflammation respectively. He also had an unrevealing CXR. He was admitted for urosepsis on vanc/ceftriaxone. His urine culture came back negative and his symptoms completely resolved. I am not transitioning him to empiric bactrim twice daily for 5 days for presumed UTI and discharging him home. DISCHARGE MEDICATIONS: Please see below. ALLERGIES: Please see below. PHYSICAL EXAMINATION ON DISCHARGE: VITAL SIGNS: Please see below. General Exam: Alert, No Acute Distress Eye Exam: PERRLA, Conjunctiva & lids normal, EOMI; anicteric ENT Exam: Atraumatic, Mucous membr. moist/pink, Pharynx Normal Neck Exam: Supple, no JVD or thyromegaly Chest Exam: Clear to auscultation, Normal air movement Heart Exam: Rate Normal, Regular Rhythm, Normal S1, Normal S2 Abdomen Exam: Normal bowel sounds, Soft, NTND, suprapubic catheter site looks clean without erythema Extremity Exam: WWP, no LE edema Skin Exam: Nl turgor and temperature, no breakdown or lesions Neuro Exam: Normal Speech, Cranial Nerves 3-12 NL Psych Exam: Mental status NL, Mood NL, Oriented x 3 LABORATORY DATA: Please see below. IMAGING: CT A/P: Markedly distended stool filled rectum and rectosigmoid producing a pelvo-abdominal mass, obstipation/constipation. Mural thickening in the rectum wall raising question of stercoral colitis. Suprapubic cystostomy catheter in place. Small right inguinal hernia transmitting a small quantity of abdominal fat. One focal calcification in the gallbladder or along its wall. Sliding hiatal hernia. Renal cysts. RUQ US: Limited exam due to patient body habitus and bowel gas. Multiple gallstones in a contracted gallbladder without gallbladder wall thickening, pericholecystic fluid or biliary dilatation. Common bile duct upper limits of normal at 7 mm. Right renal cyst. PROGNOSIS: Good ACTIVITY: As tolerated DIET: Consistent carb DISCHARGE PLAN: Home with 5d of bactrim twice daily for presumed UTI DISPOSITION: Home with home services DISCHARGE INSTRUCTIONS: 1. To take bactrim twice daily for 5 days for treatment of presumed UTI ITEMS TO FOLLOWUP ON ON OUTPATIENT: 1. PCP follow up within 1 week DISCHARGE CONDITION: Stable TIME SPENT ON DISCHARGE: 37 minutes. Vital Signs/I&Os Vital Signs Date Time Temp Pulse Resp B/P (MAP) Pulse Ox O2 Delivery O2 Flow Rate FiO2 10/28/19 08:00 98.6 88 19 116/66 (83) 97 Room Air I&O- Last 24 Hours up to 6 AM 10/28/19 06:00 Intake Total 2380 ml Output Total 900 ml Balance 1480 ml Laboratory Data Labs 24H Laboratory Tests 2 10/27/19 12:19: Urine Color YELLOW, Urine Appearance HAZY, Urine pH 5.0, Urine Specific [place] 1.013, Urine Protein 2+H, Urine Glucose (Auto)(UA) NEGATIVE, Urine Ketones (Auto) TRACEH, Urine Blood 3+H, Urine Nitrite NEGATIVE, Urine Bilirubin NEGATIVE, Urine Urobilinogen 0.2, Urine Leukocyte Esterase (Auto) 1+H, Urine WBC (Auto) 16H, Urine RBC (Auto) 73H, Urine Hyaline Casts (Auto) 1, Urine Bacteria (Auto) 1+H, Urine Squamous Epithelial Cells 0, Urine Mucus (Auto) SMALL, Urine Sperm (Auto) 10/27/19 18:01: Bedside Glucose (Misc Panel) 202H 10/27/19 21:50: Bedside Glucose (Misc Panel) 93 10/28/19 06:48: Bedside Glucose (Misc Panel) 105 10/28/19 11:29: 10/28/19 11:31: Bedside Glucose (Misc Panel) 186H FSBS Laboratory Tests Test 10/27/19 18:01 10/27/19 21:50 10/28/19 06:48 10/28/19 11:31 Range/Units Bedside Glucose (Misc Panel) 202 93 105 186 83-110 MG/DL Microbiology Microbiology 10/27/19 Urine Culture - Final, Complete 10/27/19 Blood Culture, Received Pending 10/27/19 Blood Culture - Preliminary, Resulted No growth after 24 hours . All specim... Discharge Medications Scheduled Aspirin (Ecotrin) 81 Mg Tab, 81 MG PO DAILY, (Reported) Famotidine (Famotidine) 20 Mg Tablet, 20 MG PO DAILY, (Reported) Gabapentin (Gabapentin) 600 Mg Tab, 600 MG PO BID, (Reported) Insulin Glargine,Hum.rec.anlog (Lantus Solostar) 100 Unit/Ml Inj, 16 UNITS SC QHS, (Reported) Lisinopril (Lisinopril) 5 Mg Tablet, 2.5 MG PO DAILY, (Reported) Metformin HCl (Metformin HCl) 500 Mg Tablet, 500 MG PO BID, (Reported) Simvastatin (Zocor) 80 Mg Tablet, 40 MG PO QHS, (Reported) Scheduled PRN Dextrose (Glucose) 4 Gm Tab.chew, 4 GM PO ASDIRECTED PRN for LOW BLOOD SUGAR, (Reported) Miconazole Nitrate (Miconazole Nitrate) 30 Gm Cream..g., 1 APLCT TOP BID PRN for FUNGAL INFECTION, (Reported) APPLY TO SUPRAPUBIC CATHETER AREA Nystatin (Nystatin) 100,000 Unit/Gm Oin, 1 APLCT TOP BID PRN for FUNGAL INFECTION, (Reported) APPLY TO SUPRAPUBIC CATHETER AREA Allergies Coded Allergies: No Known Allergies (Unverified , 10/21/14) SHELLEY PEÑA MD Oct 28, 2019 12:15
[2019-10-28] MEDS ORDERED: BACT800T5 PO (12:17)
[2019-10-28 16:00] VITALS: BP 109/69
[2019-10-28] MEDS ORDERED: VANCOMYCIN HCL 1,000 MG, VIAL MATE ADAPTER 1 EACH in D5W 250 ML IV SCH (17:00)
[2019-10-28] MEDS ORDERED: cefTRIAXone SOD 1 GM in D5W MINI-BAG PLUS 50 ML IV SCH (18:00)
== END 2019-10-28 16:20 | disposition home health service (06) ==
LOC: M ED 11:23 → EDBD 11:23 → M ED INP 11:24 → M PCU 21:13
PROVIDERS: ADMIT Internal Medicine; ATTEND Internal Medicine
DX: N39.0 Urinary tract infection, site not specified (principal); E11.40 Type 2 diabetes mellitus with diabetic neuropathy, unspecified; I10 Essential (primary) hypertension; Z87.898 Personal history of other specified conditions; Z96.0 Presence of urogenital implants; K57.90 Diverticulosis of intestine, part unspecified, without perforation or abscess without bleeding; E78.49 Other hyperlipidemia; Z79.82 Long term (current) use of aspirin; Z79.4 Long term (current) use of insulin; Z79.899 Other long term (current) drug therapy
CPT/HCPCS: 71045; 74176; 76705; 80048; 80076; 81001; 83605; 85025; 87040; 87086; 87641; 93041; 94760; 96361; 96365; 96366; 96375; 99285; G0378; J3370

== ENCOUNTER → 2019-11-04 | Outpatient (REF) | payer MEDICARE, OTHER ==
[~2019-11-04] MED LIST changes: +BACT800T5 PO; +FAMO20TA PO; +GLUC4GMTAB PO; +LISI-1046 PO; +LISI-542 PO; +METF500T13 PO; +MICO2CRE42 TOP; +ZOCO80TA PO
[2019-11-04 18:16] LABS: BASO % 0.5 % (0.0-1.0); EOS # 0.3 10^3/uL (0.0-0.5); EOS % 4.9 % (0.0-3.0); HEMOGLOBIN 13.8 g/dl (13.5-17.5); LYMPH # 1.3 10^3/uL (1.5-5.0); MEAN CORPUSCULAR HEMOGLOBIN 29.8 pg (27.0-33.0); MEAN CORPUSCULAR HGB CONC 32.1 g/dl (32.0-36.5); MEAN CORPUSCULAR VOLUME 92.9 fl (80.0-96.0); MONO # 0.6 10^3/uL (0.0-0.8); MONO % 10.7 % (0.0-5.0); NEUTROPHILS # 3.6 10^3/uL (1.5-8.5); NEUTROPHILS % 60.9 % (36.0-66.0); PLATELET COUNT, AUTOMATED 230 10^3/uL (150-450); RED BLOOD COUNT 4.63 10^6/uL (4.30-6.10); WHITE BLOOD COUNT 5.9 10^3/uL (4.0-10.0)
== END ==
LOC: M LAB REF 10:33
PROVIDERS: ATTEND Physician Assistant
DX: M79.676 Pain in unspecified toe(s) (principal)

== ENCOUNTER 2020-08-06 08:14 | Emergency (ER) | payer MEDICARE, OTHER ==
[~2020-08-06] VITALS: Ht 177.8 cm; Wt 90.9 kg
[~2020-08-06 08:14] MED LIST changes: +EQ A1CRE3 TOP; -LISI-1046 PO; +LISI2.5T2 PO; -TERB1CRE12 TOP
[2020-08-06 09:00] VITALS: BP 133/75
== END 2020-08-06 09:40 | disposition home or self-care (01) ==
LOC: EDBD 08:14 → M ED 08:14
DX: T83.198A Other mechanical complication of other urinary devices and implants, initial encounter (principal); E11.40 Type 2 diabetes mellitus with diabetic neuropathy, unspecified; I10 Essential (primary) hypertension; Z86.14 Personal history of Methicillin resistant Staphylococcus aureus infection; Z79.4 Long term (current) use of insulin; Z79.899 Other long term (current) drug therapy

== ENCOUNTER 2020-10-09 16:58 | Emergency (ER) | payer MEDICARE, OTHER ==
[~2020-10-09] VITALS: Ht 177.8 cm; Wt 89.5 kg
[2020-10-09] MEDS ORDERED: CEPH500C PO (18:30)
[2020-10-09 18:50] VITALS: BP 146/91
== END 2020-10-09 19:12 | disposition home or self-care (01) ==
LOC: M ED 16:58
DX: T83.098A Other mechanical complication of other urinary catheter, initial encounter (principal); N39.0 Urinary tract infection, site not specified; E11.9 Type 2 diabetes mellitus without complications; I10 Essential (primary) hypertension; K21.9 Gastro-esophageal reflux disease without esophagitis; Z98.890 Other specified postprocedural states